=== PATIENT | female | born 1955 | race Caucasian/White ===

== ENCOUNTER 2018-12-03 21:01 | Observation (INO) ==
[2018-12-04] MEDS ORDERED: diazePAM 5 MG TABLET PO PRN (04:39)
[2018-12-04] MEDS ORDERED: Naloxone 0.4 MG/ML INJ IVP PRN (04:42)
[2018-12-04] MEDS ORDERED: Ondansetron 4 MG/2 ML VIAL IVP PRN (04:42)
[2018-12-04] MEDS ORDERED: *HR* OxyCODONE Immed Rel 5 MG TABLET PO PRN (04:42)
[2018-12-04] MEDS ORDERED: traMADol 50 MG TABLET PO PRN (04:42)
--- NOTE | 2018-12-04 04:59 | Internal Med History&Physical ---
Date of Encounter: 12/04/18 Time of Encounter: 04:00 Internal Medicine - H&P: HPI Chief complaint: CP Admitted From: Hospital to Hospital Transfer Plans for Post Hospital Care: Home History of present illness: Ms. Heath is a 63 year old female w/PMH of CAD, HTN, HLD, COPD, GERD, arthritis, anxiety, depression, and previous HI w/stents x5 presents from [facility] w/CC of CP that began yesterday afternoon at approximately 15:00 while the pt. was at rest driving her car to see her daughter. Pt. states she began to feel chest tightness in the central chest which felt like previous HI. Associated symptoms: Vision changes, SOB, dizziness, diaphoresis, nausea, and vomiting. Aggravating factor: None. Alleviating factor: SL nitroglycerin. Pt. reports CAD hx with HTN, HLD, and stents x5. Pt. states symptoms are transient. PT. denies recent illness, fever, chills, headache, unusual bleeding, abdominal pain, chest congestion, cough, diarrhea, constipation, numbness, tingling, pre-syncope, or syncope. Past Med Surg Social Fam HX - Past Medical History Source: patient, old records reviewed Medical history: arthritis, COPD, coronary artery disease, GERD, hyperlipidemia, hypertension, myocardial infarction Psychiatric history: anxiety, depression - Past Surgical History Surgical History: cholecystectomy, herniorrhaphy, hysterectomy Additional surgical history: 5 cardiac stents - Social History Smoking Status: Current every day smoker Packs per day: 1 PPD Smokeless Tobacco Status: No Alcohol use: none Drug use: none Current living situation: Home Activity Level: Independent ambulation Recent Out of Country Travel Within the Last 8 Weeks: No Exposure or Possible Exposure to Illness During Travel: No - Family History Father Race: Family Member Ethnicity: Non- Living Status: Cause of : Pancreatic cancer Hx Family Cardiac Disorders: Yes (HTN) Hx Family Respiratory Disorders: Yes (COPD) Hx Family Cancer: Yes (Pancreatic) Hx Family Psychosocial Disorders: Yes (depression) Mother Race: Family Member Ethnicity: Non- Living Status: Still Living Hx Family Cardiac Disorders: Yes (HLD) Hx Family Psychosocial Disorders: Yes (depression) Brother History Unknown: Yes () Race: Family Member Ethnicity: Non- Living Status: Hx Family Endocrine Disorder: Yes (DM) Internal Medicine - H&P: Meds Atorvastatin Calcium [Lipitor] 80 mg PO DAILY 06/03/18 [History] Buspirone HCl [Buspar] 5 mg PO TID 06/03/18 [History] Meloxicam [Mobic] 15 mg PO DAILY 06/03/18 [History] Metoprolol Succinate [[place] Sprinkle] 25 mg PO DAILY 06/03/18 [History] Nitroglycerin [Nitrostat] 0.4 mg SL DAILY PRN 06/03/18 [History] Omeprazole [PriLOSEC] 40 mg PO DAILY 06/03/18 [History] Sertraline [Zoloft] 100 mg PO BID 06/03/18 [History] diazePAM [Valium] 5 mg PO BID PRN 06/03/18 [History] miSOPROStol [Cytotec] 100 mcg PO BID 06/03/18 [History] traZODone [TraZODone] 50 mg PO DAILY PRN 06/03/18 [History] Albuterol Sulfate [Albuterol Inhaler] 1 puff IH Q4-6H 12/04/18 [History] Fluconazole [Diflucan] 150 mg PO DAILY 12/04/18 [History] Fluticasone/Vilanterol [Breo Ellipta 200-25 Mcg INH] 1 each IH DAILY 12/04/18 [History] Allergy/AdvReac Type Severity Reaction Status Date / Time naproxen [From Aleve] AdvReac Hives Verified 05/19/18 11:10 sulfamethoxazole AdvReac Hives Verified 05/19/18 11:10 [From Bactrim] trimethoprim [From Bactrim] AdvReac Hives Verified 05/19/18 11:10 All Systems PM: A 10-system review of systems was performed and is negative for pertinent findings except as documented above in the HPI. - Constitutional Constitutional: as per HPI, no chills, no fever(s), no night sweats - EENT Eyes: as per HPI, change in vision (During CP symptoms), no discharge, no pain, no photophobia Ears: no ear discharge, no ear pain, no tinnitus Nose, mouth and throat: no dysphagia, no nasal discharge, no neck pain, no sore throat - Breasts Breasts: as per HPI - Cardiovascular Cardiovascular ROS IM: as per HPI, chest pain, diaphoresis, dyspnea, dyspnea on exertion, lightheadedness, no palpitations, no syncope - Respiratory Respiratory: as per HPI, dyspnea, dyspnea on exertion, no cough, no wheezing, no excessive phlegm production - Gastrointestinal Gastrointestinal: as per HPI, nausea, vomiting, no abdominal pain, no diarrhea, no hematemesis, no hematochezia, no melena - Genitourinary Genitourinary: no change in urinary stream, no dysuria, no flank pain, no hematuria Menstruation: as per HPI - Musculoskeletal Musculoskeletal ROS IM: no numbness, no tingling - Integumentary Integumentary IM: no rash, no unusual bruising - Neurological Neurological ROS: as per HPI, dizziness, no confusion, no convulsions, no focal weakness, no numbness, no tingling, no tremor(s) - Psychiatric Psychiatric: as per HPI, anxiety, depression - Endocrine Endocrine IM: as per HPI - Hematologic/Lymphatic Hematologic/Lymphatic: no easy bruising - Allergic/Immunologic Allergic/Immunologic: as per HPI - Constitutional Vitals: Temp Pulse Resp BP Pulse Ox 98.5 F 64 14 129/66 94 12/04/18 04:15 12/04/18 04:15 12/04/18 04:15 12/04/18 04:15 12/04/18 04:15 General appearance: Present: cooperative, A&O X 3, pleasant, obese, answers questions appropriately Exam: Patient examined at bedside. Pt. resting in bed and reports transient chest tightness that feels like her previous HI. SL nitro eases symptoms. Previously experienced vision changes, dizziness, diaphoresis, nausea and vomiting with symptoms earlier in the afternoon. Denies these symptoms now. Patient denies any other complaints or symptoms at this time. VS: 98.5F temp, HR 64, RR 14, BP 129/66, SPO2 94% on room air. - Head Head exam: Present: atraumatic, normocephalic - Eye Eye exam: Present: PERRL, conjuntiva pink, sclera anicteric Pupils: Present: PERRL - ENT ENT exam: Present: normal exam - Neck Neck exam general surgery: Present: normal inspection, supple, trachea midline. Absent: lymphadenopathy - Respiratory Respiratory exam: Present: CTAB. Absent: accessory muscle use, rales, rhonchi, wheezes - Cardiovascular Cardiovascular exam: Present: RRR, +S1, +S2. Absent: diastolic murmur, gallop, rubs, systolic murmur - GI/Abdominal GI/Abdominal exam: Present: normal bowel sounds, soft, no peritoneal signs. Absent: distended, tenderness - Rectal Rectal exam: Present: deferred - Additional comments: exam deferred. - Extremities Exam Extremities exam: Present: warm, radial pulses palpable and symmetrical. Absent: calf tenderness, cyanotic, pedal edema - Back Exam Back exam: Present: normal inspection - Neurological Exam Neurological exam: Present: alert, CN II-XII intact, oriented X3, no focal deficits. Absent: pronater drift, facial droop, speech deficit - Psychiatric Psychiatric exam: Present: normal affect, normal mood - Skin Skin exam: Present: dry, intact Internal Med - H&P Results - Labs CBC & Chem 7: 12/04/18 04:37 12/04/18 04:37 - Assessment and Plan (1) Chest pain Current Visit: Yes Status: Acute Assessment and plan: Acute CP that began yesterday afternoon at approximately 15:00 while the pt. was at rest driving her car to see her daughter. Pt. states she began to feel chest tightness in the central chest which felt like previous HI. Associated symptoms: Vision changes, SOB, dizziness, diaphoresis, nausea, and vomiting. Aggravating factor: None. Alleviating factor: SL nitroglycerin. Pt. reports CAD hx with HTN, HLD, and stents x5. Pt. states symptoms are transient. Initial troponin at [facility] <0.03. Trending. Echocardiogram. ASA. 80 mg Lipitor now. SL nitro PRN. Last nuclear stress test was on 05/19/18 and was nondiagnostic for ischemia due to submaximal HR. Gated EF equals 62%. Small sized, moderate intensity, reversible apex and apical lateral perfusion defect suggestive of ischemia. NPO in case stress test ordered and troponins remain WNL. Cardiology consult ordered and Dr. Coulter pulmonary care nurse and was notified via [employer] and confirmed at 05:49. Consult ordered d/t pts. previous HI, hx of stents x5, unstable angina, obesity, and current tobacco abuse. Patient is high risk for cardiac event and further morbidity due to current unstable angina, previous HI and hx of 5 stents, non-diagnostic stress test on 05/19/18; and risk factors of HTN, HLD, CAD, obesity, and current tobacco abuse. Observation. Qualifiers: Chest pain type: other chest pain Qualified Code(s): R07.89 - Other chest pain; R07.8 - Other chest pain (2) Dizziness Current Visit: Yes Status: Acute Assessment and plan: Acute dizziness w/CP sx. Pt. reports she had changes in vision, diaphoresis, nausea, and vomiting with previous symptoms which is resolved. Falls/safety precautions and up with assist only. Pt. instructed to not get out of bed w/o assistance and to place her call light on. (3) CAD (coronary artery disease) Current Visit: Yes Status: Chronic Assessment and plan: Hx of chronic CAD. Hx of previous HI w/stents x5. HLD. HTN. Continue ASA daily. Continue HLD and HTN medications. Continuous cardiac telemetry. Qualifiers: Coronary Disease-Associated Artery/Lesion type: [place] artery [place] vs. transplanted heart: [place] heart Associated angina: with unspecified angina Qualified Code(s): I25.119 - Atherosclerotic heart disease of [place] coronary artery with unspecified angina pectoris (4) HTN (hypertension) Current Visit: Yes Status: Chronic Assessment and plan: Hx of chronic HTN. Monitor pt. and VS. Continue pts. HTN medications. IVP hydralazine 10 mg Q6HR PRN w/parameters ordered. Qualifiers: Hypertension type: essential hypertension Qualified Code(s): I10 - Essential (primary) hypertension (5) HLD (hyperlipidemia) Current Visit: Yes Status: Chronic Assessment and plan: Hx of chronic HLD. Lipid panel in a.m. labs. Continue Lipitor HS. Qualifiers: Hyperlipidemia type: pure hypercholesterolemia Qualified Code(s): E78.00 - Pure hypercholesterolemia, unspecified; E78.0 - Pure hypercholesterolemia (6) COPD (chronic obstructive pulmonary disease) Current Visit: Yes Status: Chronic Assessment and plan: Hx of chronic COPD. Stable. Continue pts. inhaler. Supplemental O2 w/titration and SpO2 monitoring PRN. Will add Xopenex IH if pt. starts to shows signs of COPD exacerbation. Qualifiers: COPD type: unspecified COPD Qualified Code(s): J44.9 - Chronic obstructive pulmonary disease, unspecified (7) Anxiety and depression Current Visit: Yes Status: Chronic Assessment and plan: Hx of chronic anxiety and depression. Continue pts. Valium and Buspar. Will continue pts. Zoloft once confirmed. (8) GERD (gastroesophageal reflux disease) Current Visit: Yes Status: Chronic Assessment and plan: Hx of chronic GERD. Continue pts. Prilosec daily. Qualifiers: Esophagitis presence: esophagitis presence not specified Qualified Code(s): K21.9 - Gastro-esophageal reflux disease without esophagitis (9) Previous myocardial infarction older than 8 weeks Current Visit: Yes Status: Resolved Assessment and plan: Hx of previous HI. Stents x5. Pt. states current CP sx feel like her previous HI. ASA daily. Lipitor daily. Continuous cardiac telemetry. Continue pts. HTN medications. (10) DVT prophylaxis Current Visit: Yes Status: Acute Assessment and plan: Heparin gtt for current CP started while at [facility] and continued here. Monitor pt. for signs of bleeding. - Time Spent With Patient Total time spent is greater than 50% in coordination of care (as documented) at patient's floor/unit and/or counseling patient: Greater than 35 minutes
[2018-12-04 05:05] LABS: Basophils % 0.5 %; Eosinophils # 0.2 K/mcL (0.0-0.6); Eosinophils % 2.5 %; Hematocrit 38.3 % (35.3-44.9); Hemoglobin 12.4 g/dL (11.5-15.4); Immature Granulocytes % 0.2 % (0-4); Lymphocytes # 2.8 K/mcL (0.6-4.6); Mean Corpuscular HGB Conc 32.4 g/dL (31.6-35.5); Mean Corpuscular Hemoglobin 28.1 pg (28.0-33.3); Mean Corpuscular Volume 86.7 fL (83.0-100.0); Mean Platelet Volume 10.7 fL (9.4-12.4); Monocytes # 0.4 K/mcL (0.0-1.3); Monocytes % 6.1 %; Platelet Count 156 K/mcL (140-400); Red Blood Count 4.42 M/mcL (3.82-4.97); Red Cell Distribution Width 13.1 % (11.5-14.5); Segmented Neutrophils % 46.7 %; White Blood Count 6.4 K/mcL (4.3-11.1)
[2018-12-04] MEDS: Acetaminophen 325 MG TABLET PO PRN ×2 (05:05→16:06)
[2018-12-04] MEDS ORDERED: Nitroglycerin 0.4 MG TAB.SUBL SL PRN (05:17)
[2018-12-04] MEDS ORDERED: *HR* Heparin 5,000 UNIT/ML VIAL IVP PRN ×2 (05:18)
[2018-12-04 05:20] LABS: Alanine Aminotransferase 11 Units/L (7-52); Albumin/Globulin Ratio 1.7 (1.1-2.2); Alkaline Phosphatase 72 Units/L (34-104); Aspartate Amino Transferase 14 Units/L (13-39); BUN/Creatinine Ratio 12 (6-26); Bilirubin,Total 0.3 mg/dL (0.3-1.0); Blood Urea Nitrogen 10 mg/dL (8-23); Calcium 9.5 mg/dL (8.6-10.3); Carbon Dioxide 28 mEq/L (23-29); Chloride 106 mEq/L (98-107); Globulin 2.3 g/dL (2.4-3.5); Glucose 101 mg/dL (70-105); Osmolality,Calculated 293 (280-300); Potassium 4.2 mEq/L (3.5-5.1); Sodium 142 mEq/L (136-145); Total Protein 6.3 g/dL (6.4-8.9); Troponin I < 0.03 ng/mL (< 0.04); eGFR For African Americans > 60 (> 60); eGFR For Non-African Americans > 60 (> 60)
[2018-12-04] MEDS ORDERED: Heparin 25,000 UNIT/250 ML D5W 25,000 UNIT/250 ML IV.SOLN IVC SCH (05:30)
[2018-12-04 06:38] LABS: Hematocrit 37.6 % (35.3-44.9); Hemoglobin 12.3 g/dL (11.5-15.4); Mean Corpuscular HGB Conc 32.7 g/dL (31.6-35.5); Mean Corpuscular Hemoglobin 28.3 pg (28.0-33.3); Mean Corpuscular Volume 86.6 fL (83.0-100.0); Mean Platelet Volume 10.6 fL (9.4-12.4); Platelet Count 142 K/mcL (140-400); Red Blood Count 4.34 M/mcL (3.82-4.97); White Blood Count 6.1 K/mcL (4.3-11.1)
[2018-12-04 06:44] LABS: INR 1.2; Prothrombin Time 13.9 Seconds (9.4-12.1)
--- NOTE | 2018-12-04 08:07 | Event Note ---
Date of Encounter: 12/04/18 Time of Encounter: 08:51 Patient seen and examined at bedside. 63 F with CAD and tobacco abuse presented from [facility] with chest pain. Cardiology consulted. Vitals: reviewed Pt in no acute distress, skin warm dry, breath sounds clear, RRR, no mrg, no peripheral edema Labs: reviewed, initial troponin negative Chest pain: was placed on a heparin drip on admission. cycle troponin and Cardiology consulted. CAD: resume home medications HTN: resume home medications Tobacco abuse: education provided.
[2018-12-04] MEDS: Aspirin 81 MG TAB.CHEW PO SCH (09:04)
--- NOTE | 2018-12-04 09:09 | Cardiology Consult Note ---
Date of Encounter: 12/04/18 Time of Encounter: 09:07 Assessment and Plan (1) Dizziness Current Visit: Yes Status: Acute Patient reports dizziness while driving with subsequent visual changes and diaphoresis. This was followed by chest discomfort and nausea. Initial cardiac workup was unremarkable, including negative troponins and no acute ECG changes. Patient is currently chest discomfort free. Previous testing reviewed, which demonstrates minimal CAD and normal LV function. At this time, there is no compelling indication for further cardiac testing. Continue telemetry. Consider evaluation for possible TIA in setting of acute transient visual dustin nges. Carotid duplex ordered. (2) CAD (coronary artery disease) Current Visit: Yes Status: Chronic History of CAD, prior PCI. LHC 05/2018 demonstrated patent stents and minimal CAD. LVEF preserved. Serial troponin measurements negative. ECG, no acute changes. Patient currently denies chest discomfort. Given relatively recent workup, including a cardiac catheterization, no further cardiac testing appears to be warranted at this time. Presentation is not consistent with ACS. Recommend continue aspirin, atorvastatin. Heart rate 60s, unlikely to tolerate beta jeniffer therapy. Risk factor modification encouraged. Qualifiers: Coronary Disease-Associated Artery/Lesion type: [place] artery [place] vs. transplanted heart: [place] heart Associated angina: with unspecified angina Qualified Code(s): I25.119 - Atherosclerotic heart disease of [place] coronary artery with unspecified angina pectoris Discussion w patient/family: The assessment and plan as outlined above was discussed with the patient and/or family members who expressed understanding and agreement. All questions were answered. Thank you for involving us in the care of your patient. Please call with any questions. History of Present Illness Consult date: 12/04/18 Requesting physician: Riley Morris Consult reason: Chest discomfort Chief complaint: Dizziness History of present illness: Ms. Heath is a 63 year old female with a history of CAD, prior PCI. Stress test performed 05/2018 mildly abnormal. Subsequent LHC 06/03/2018 demonstrated minimal CAD, patent stents. LVEF is preserved. Presented to the hospital yesterday after describing dizziness while driving. Patient states she began to get lightheaded, which was followed by diaphoresis, and subsequent chest discomfort. Describes neurological type symptoms, including transient vision changes. Symptoms were brief. Reports nausea, episode of vomiting when walking into the hospital. Serial troponin measurements are negative. ECG demonstrates sinus rhythm, no significant ST or T-wave changes. Past Med Surg Social Fam HX - Past Medical History Medical history: arthritis, COPD, coronary artery disease, GERD, hyperlipidemia, hypertension, myocardial infarction Psychiatric history: anxiety, depression - Past Surgical History Surgical History: cholecystectomy, herniorrhaphy, hysterectomy Additional surgical history: 5 cardiac stents - Social History Smoking Status: Current every day smoker Packs per day: 1 PPD Smokeless Tobacco Status: No Alcohol use: none Drug use: none - Family History Father Race: Family Member Ethnicity: Non- Living Status: Cause of : Pancreatic cancer Hx Family Cardiac Disorders: Yes (HTN) Hx Family Respiratory Disorders: Yes (COPD) Hx Family Cancer: Yes (Pancreatic) Hx Family Psychosocial Disorders: Yes (depression) Mother Race: Family Member Ethnicity: Non- Living Status: Still Living Hx Family Cardiac Disorders: Yes (HLD) Hx Family Psychosocial Disorders: Yes (depression) Brother History Unknown: Yes () Race: Family Member Ethnicity: Non- Living Status: Hx Family Endocrine Disorder: Yes (DM) Medications and Allergies Atorvastatin Calcium [Lipitor] 80 mg PO DAILY 06/03/18 [History] Buspirone HCl [Buspar] 5 mg PO TID 06/03/18 [History] Meloxicam [Mobic] 15 mg PO DAILY 06/03/18 [History] Metoprolol Succinate [[place]apsp[place] Sprinkle] 25 mg PO DAILY 06/03/18 [History] Nitroglycerin [Nitrostat] 0.4 mg SL DAILY PRN 06/03/18 [History] Omeprazole [PriLOSEC] 40 mg PO DAILY 06/03/18 [History] Sertraline [Zoloft] 100 mg PO BID 06/03/18 [History] diazePAM [Valium] 5 mg PO BID PRN 06/03/18 [History] miSOPROStol [Cytotec] 100 mcg PO BID 06/03/18 [History] traZODone [TraZODone] 50 mg PO DAILY PRN 06/03/18 [History] Albuterol Sulfate [Albuterol Inhaler] 1 puff IH Q4-6H 12/04/18 [History] Fluconazole [Diflucan] 150 mg PO DAILY 12/04/18 [History] Fluticasone/Vilanterol [Breo Ellipta 200-25 Mcg INH] 1 each IH DAILY 12/04/18 [History] Allergy/AdvReac Type Severity Reaction Status Date / Time naproxen [From Aleve] AdvReac Hives Verified 05/19/18 11:10 sulfamethoxazole AdvReac Hives Verified 05/19/18 11:10 [From Bactrim] trimethoprim [From Bactrim] AdvReac Hives Verified 05/19/18 11:10 All Systems Review: The remainder of the systems were reviewed and are negative - Cardiovascular Cardiovascular: as per HPI - Neurological Neurological: dizziness, focal weakness Physical Examination Vital Signs, Last 4 Hours Temp Pulse Resp BP Pulse Ox 12/04/18 06:37 97.9 F 65 16 114/71 98 General: Conversant, No Apparent Distress HEENT: Atraumatic, Normocephaly, Mucus Membranes Moist Neck: No JVD, Normal carotid pulses Cardiac: Reg Rate and Rhythm, Normal S1 and S2, No Murmur Lungs: Normal Breath Sounds, No Wheeze, Rales, Rhonchi Neuro: Alert and responsive, No focal deficits noted Abdomen: Soft, Non-Tender Skin: No rashes noted on visualized skin Musculoskeletal: No Chest Wall Tenderness Extremities: No Clubbing, No Cyanosis, No Edema Results 12/04/18 06:25 12/04/18 04:37 Lab Results 12/04/18 12/04/18 12/04/18 04:37 04:37 06:25 WBC 6.4 6.1 Hgb 12.4 12.3 Hct 38.3 37.6 Plt Count 156 142 INR Sodium 142 Potassium 4.2 Chloride 106 Carbon Dioxide 28 BUN 10 Creatinine 0.82 Glucose 101 Calcium 9.5 Total Bilirubin 0.3 AST 14 ALT 11 Alkaline Phosphatase 72 Troponin I < 0.03 12/04/18 06:25 WBC Hgb Hct Plt Count INR 1.2 Sodium Potassium Chloride Carbon Dioxide BUN Creatinine Glucose Calcium Total Bilirubin AST ALT Alkaline Phosphatase Troponin I - Imaging and Cardiology Echo: report reviewed Cardiac cath: report reviewed - EKG Interpretation EKG results cardiology: personally reviewed Consult Discharge Plan - Plan Referrals: Yessica Michelle [Primary Care Provider] -
[2018-12-04] MEDS: *HR* Heparin 5,000 UNIT/ML VIAL SQ SCH ×2 (14:16→21:27)
--- NOTE | 2018-12-04 14:22 | Electrocardiograph Report ---
[address] [address] Test Date: 2018-12-04 Pat Name: Denia Heath Department: 113 Room: 3B37 Gender: F Director Of Graduate Medical Education: : 1955 Requested By: Boni Deutsch Order Number: [id number] Reading MD: Oscar Coulter Measurements Intervals [place] Rate: 57 P: 30 ID: [id number] QRS: -2 QRSD: 104 T: 3 QT: 412 QTc: 407 Interpretive Statements SINUS BRADYCARDIA LOW QRS VOLTAGE IN PRECORDIAL LEADS INCOMPLETE RIGHT BUNDLE BRANCH BLOCK MINIMAL ST DEPRESSION Electronically Signed On 12-04-2018 14:20:36 EDT by Oscar Coulter
[2018-12-04] MEDS ORDERED: traZODone 50 MG TABLET PO PRN (21:00)
[2018-12-04] MEDS ORDERED: miSOPROStol 100 MCG TABLET PO SCH (21:00)
[2018-12-05 01:39] LABS: Hematocrit 38.7 % (35.3-44.9); Hemoglobin 12.7 g/dL (11.5-15.4); Mean Corpuscular HGB Conc 32.8 g/dL (31.6-35.5); Mean Corpuscular Hemoglobin 29.2 pg (28.0-33.3); Mean Platelet Volume 10.8 fL (9.4-12.4); Platelet Count 154 K/mcL (140-400); Red Blood Count 4.35 M/mcL (3.82-4.97); White Blood Count 4.7 K/mcL (4.3-11.1)
[2018-12-05 01:54] LABS: BUN/Creatinine Ratio 14 (6-26); Blood Urea Nitrogen 13 mg/dL (8-23); Calcium 9.4 mg/dL (8.6-10.3); Carbon Dioxide 27 mEq/L (23-29); Chloride 107 mEq/L (98-107); Chol/HDL Ratio 3.5 (0-4.9); Cholesterol 145 mg/dL (< 200); Glucose 103 mg/dL (70-105); HDL Cholesterol 42 mg/dL (40-59); LDL Cholesterol,Calculated 77 mg/dL (0-99); Magnesium 2.2 mg/dL (1.6-2.6); Osmolality,Calculated 292 (280-300); Potassium 3.8 mEq/L (3.5-5.1); Sodium 141 mEq/L (136-145); Triglycerides 128 mg/dL (< 150); eGFR For African Americans > 60 (> 60); eGFR For Non-African Americans 59 (> 60)
[2018-12-05] MEDS: *HR* Heparin 5,000 UNIT/ML VIAL SQ SCH (05:30)
[2018-12-05 07:19] VITALS: BP 117/78
[2018-12-05] MEDS: Aspirin 81 MG TAB.CHEW PO SCH (08:36)
[2018-12-05] MEDS: (Fluticasone/Vilanterol [Breo Ellipta 200-25 Mcg Inh]) IH SCH ×2 (08:38→11:07)
--- NOTE | 2018-12-05 09:03 | Discharge Summary ---
- NOTES TO OUTPATIENT PROVIDER Notes to Outpatient Provider: - Recommend Neurology consult as outpatient. For dizziness and for CT findings if normal or abnormal. - Advised against driving to patient and operating heavy machinery. Please re-enforce this to patient as well. Orders not resulted at time of discharge: Pending orders 12/06/18 04:00 Basic Metabolic Panel AM 0400 Complete Blood Count w/o Diff [HEME] AM 0400 12/07/18 04:00 Basic Metabolic Panel AM 0400 Complete Blood Count w/o Diff [HEME] AM 0400 Date of Encounter: 12/05/18 Time of Encounter: 09:00 - Discharge Diagnosis (1) Chest pain Priority: Primary Status: Acute Qualifiers: Chest pain type: other chest pain Qualified Code(s): R07.89 - Other chest pain; R07.8 - Other chest pain (2) Dizziness Priority: Secondary Status: Acute (3) HTN (hypertension) Priority: Secondary Status: Chronic Qualifiers: Hypertension type: essential hypertension Qualified Code(s): I10 - Essential (primary) hypertension (4) HLD (hyperlipidemia) Priority: Secondary Status: Chronic Qualifiers: Hyperlipidemia type: pure hypercholesterolemia Qualified Code(s): E78.00 - Pure hypercholesterolemia, unspecified; E78.0 - Pure hypercholesterolemia (5) COPD (chronic obstructive pulmonary disease) Priority: Secondary Status: Chronic Qualifiers: COPD type: unspecified COPD Qualified Code(s): J44.9 - Chronic obstructive pulmonary disease, unspecified (6) CAD (coronary artery disease) Priority: Secondary Status: Chronic Qualifiers: Coronary Disease-Associated Artery/Lesion type: [place] artery [place] vs. transplanted heart: [place] heart Associated angina: with unspecified angina Qualified Code(s): I25.119 - Atherosclerotic heart disease of [place] coronary artery with unspecified angina pectoris (7) Anxiety and depression Priority: Secondary Status: Chronic (8) DVT prophylaxis Priority: Secondary Status: Acute (9) GERD (gastroesophageal reflux disease) Priority: Secondary Status: Chronic Qualifiers: Esophagitis presence: esophagitis presence not specified Qualified Code(s): K21.9 - Gastro-esophageal reflux disease without esophagitis (10) Previous myocardial infarction older than 8 weeks Priority: Secondary Status: Resolved Hospital course: Ms. Heath is a 63 year old female w/PMH of CAD, HTN, HLD, COPD, GERD, arthritis, anxiety, depression, and previous MN w/stents x5 presents from [facility] w/CC of CP that began yesterday afternoon at approximately 15:00 while the pt. was at rest driving her car to see her daughter. Pt. states she began to feel chest tightness in the central chest which felt like previous MN. Associated symptoms: Vision changes, SOB, dizziness, diaphoresis, nausea, and vomiting. Aggravating factor: None. Alleviating factor: SL nitroglycerin. Pt. reports CAD hx with HTN, HLD, and stents x5. Pt. states symptoms are transient. PT. denies recent illness, fever, chills, headache, unusual bleeding, abdominal pain, chest congestion, cough, diarrhea, constipation, numbness, tingling, pre-syncope, or syncope. Cardiology was consulted due to CAD history. Carotids orderesd which showed non-stenotic plaque, did not mention any occlusion. Echocardiogram ordered with no findings to explain symptoms. Cardiology eval showed no indication for further cardiac testing since recent stress testing and LHC done. EKG showed sinus rhythm with no significant ST or T wave changes. CT head done and was negative for any acute process, did note white matter hypoattenuation that is typical for microvascular ischemic disease or as sequela of dysmyelinating/demyelinating process and so Neuro eval as outpatient is recommended. She will be continued on aspiring/Statin on discharge with addition of Plavix for one month until seen by Neurology. NSAID DC'd - Time Spent with Patient Total time spent providing and/or coordinating discharge services: - Discharge Medications Prescriptions: New Aspirin 81 mg PO DAILY #30 tab.chew Clopidogrel [Plavix] 75 mg PO DAILY #30 tablet Continued Sertraline [Zoloft] 100 mg PO BID Omeprazole [PriLOSEC] 40 mg PO DAILY Buspirone HCl [Buspar] 5 mg PO TID diazePAM [Valium] 5 mg PO BID PRN PRN Reason: Anxiety miSOPROStol [Cytotec] 200 mcg PO BID traZODone [TraZODone] 50 mg PO DAILY PRN PRN Reason: Insomnia Nitroglycerin [Nitrostat] 0.4 mg SL DAILY PRN PRN Reason: Chest Pain Metoprolol Succinate [[place] Sprinkle] 25 mg PO DAILY Atorvastatin Calcium [Lipitor] 80 mg PO DAILY Albuterol Sulfate [Albuterol Inhaler] 1 puff IH Q4-6H Fluconazole [Diflucan] 150 mg PO DAILY Fluticasone/Vilanterol [Breo Ellipta 200-25 Mcg INH] 1 each IH DAILY Discontinued Meloxicam [Mobic] 15 mg PO DAILY Home Medications: Atorvastatin Calcium [Lipitor] 80 mg PO DAILY 06/03/18 [History] Buspirone HCl [Buspar] 5 mg PO TID 06/03/18 [History] Metoprolol Succinate [[place] Sprinkle] 25 mg PO DAILY 06/03/18 [History] Nitroglycerin [Nitrostat] 0.4 mg SL DAILY PRN 06/03/18 [History] Omeprazole [PriLOSEC] 40 mg PO DAILY 06/03/18 [History] Sertraline [Zoloft] 100 mg PO BID 06/03/18 [History] diazePAM [Valium] 5 mg PO BID PRN 06/03/18 [History] miSOPROStol [Cytotec] 200 mcg PO BID 06/03/18 [History] traZODone [TraZODone] 50 mg PO DAILY PRN 06/03/18 [History] Albuterol Sulfate [Albuterol Inhaler] 1 puff IH Q4-6H 12/04/18 [History] Fluconazole [Diflucan] 150 mg PO DAILY 12/04/18 [History] Fluticasone/Vilanterol [Breo Ellipta 200-25 Mcg INH] 1 each IH DAILY 12/04/18 [History] Aspirin 81 mg PO DAILY #30 tab.chew 12/05/18 [Rx] Clopidogrel [Plavix] 75 mg PO DAILY #30 tablet 12/05/18 [Rx] Allergies/Adverse Reactions: Allergy/AdvReac Type Severity Reaction Status Date / Time naproxen [From Aleve] AdvReac Hives Verified 05/19/18 11:10 sulfamethoxazole AdvReac Hives Verified 05/19/18 11:10 [From Bactrim] trimethoprim [From Bactrim] AdvReac Hives Verified 05/19/18 11:10 Date of admission: 12/04/18 03:33 Primary care physician: Yessica Michelle Consults: 12/04/18 04:44 Consult to [facility] [employer] Grinder [CONS] Routine Reason for SW Consult: Please assess patient for possible home needs for post-discharge planning. 12/04/18 04:50 Consult to Cardiology [CONS] Routine Comment: Confirmed via Vocera to Dr. Coulter Consulting Provider: Alex Domingo Reason for Consult: Patient has hx of CAD and previous MN. Has stents x5. CP yesterday afternoon which felt like previous MN which came on at rest. Initial tro ponin at [facility] <0.03. Trending. Nuclear stress in 05/2018. Echocardiogram ordered. Consult placed d/t high risk status and possible LHC need. Call Completed: Yes Discharging clinician: Riley Morris - Constitutional Vitals: Temp Pulse Resp BP Pulse Ox 97.6 F 72 16 117/78 92 12/05/18 07:15 12/05/18 07:15 12/05/18 07:15 12/05/18 07:15 12/05/18 07:15 General appearance: Present: cooperative, A&O X 3, pleasant, obese, answers questions appropriately Exam: . - Head Head exam: Present: atraumatic, normocephalic - Eye Eye exam: Present: PERRL, conjuntiva pink, sclera anicteric Pupils: Present: PERRL - Neck Neck exam general surgery: Present: supple, trachea midline. Absent: lymphadenopathy - Respiratory Respiratory exam: Present: CTAB. Absent: accessory muscle use, rales, rhonchi, wheezes - Cardiovascular Cardiovascular exam: Present: RRR, +S1, +S2. Absent: diastolic murmur, gallop, rubs, systolic murmur - GI/Abdominal GI/Abdominal exam: Present: normal bowel sounds, soft, no peritoneal signs. Absent: distended, tenderness - Extremities Exam Extremities exam: Present: warm, radial pulses palpable and symmetrical. Absent: calf tenderness, cyanotic, pedal edema - Neurological Exam Neurological exam: Present: CN II-XII intact, oriented X3, no focal deficits. Absent: pronater drift, facial droop, speech deficit - Skin Skin exam: Present: dry, intact - Patient Status Disposition: Home, Self-Care Condition: Good Functional capacity at discharge: independent ambulation Overall status at discharge: patient is back to baseline - Discharge Instructions Follow Up With: Yessica Michelle [Primary Care Provider] - (Unable to make appointment,due to office being closed) - Diet and Activity Activity: return to work once cleared by your PCP/specialist Diet: advance to your usual diet
--- NOTE | 2018-12-05 09:25 | Event Note ---
Date of Encounter: 12/05/18 Time of Encounter: 09:24 - Cardiology Event Note TTE 12/[address] no acute abnormality. Carotid dopplers nonstenotic plaque. Recent [facility] 05/2018 minimal one vessel CAD. No further cardiac testing warranted. Cardiology signing off. Reconsult PRN.
== END 2018-12-05 11:17 | disposition home or self-care (01) ==
LOC: 3BNU → SUATTDRO 12-04 03:33
PROVIDERS: ADMIT Internal Medicine; ATTEND Student in an Organized Health Care Education/Training Program